=== PATIENT | female | born 1980 | race Caucasian/White ===

== ENCOUNTER → 2016-10-30 | Emergency (ER) | payer MEDICAID ==
[~2016-10-30] VITALS: Ht 154.9 cm; Wt 59.0 kg
[~2016-10-30] MED LIST: AMX500CIP PO; CEPH-38 PO; DIAZ10TA3 PO; DICL25CA4 PO; HYDR-2890 PO; LAMO100T69 PO; OXYC-272 PO; PRD20T PO; PROM12.59 PO; RT-ALBUTEROL/IPRATROPIUM 3 ML (DUONEB) VIAL INH ONE; methylPREDNISolone 125 MG (Solu-MEDROL) VIAL IM ONE; methylPREDNISolone 125 MG (Solu-MEDROL) VIAL ONE
--- NOTE | 2016-10-30 14:17 | ED Respiratory ---
General Chief Complaint: Respiratory Problems Stated Complaint: SOA,CHEST PAIN Source: patient Exam Limitations: no limitations History of Present Illness Time seen by provider: 14:13 Initial Comments The patient states that she was in the car yesterday with her and family as they were going out to eat. She noted a sensation of pressure over the upper shoulders posteriorly and then felt that she could not pull in a breath for about 30 minutes. This had never happened before. She is a smoker. She has chronic lung problems primarily with bronchitis. She sees Corrine a picker box operator in [place]. She saw him last week and he adjusted her medications. This did not seem to do for her circumstances. Timing/Duration: yesterday Prior Episodes/Possible Cause: occasional episodes Modifying Factors: Improves With Albuterol Inhaler, Improves With Other ( inhaled steroids) Associated Symptoms: chest pain/soreness, shortness of breath Allergies and Home Medications Allergies Coded Allergies: No Known Drug Allergies (Unverified , 11/12/13) Home Medications Cephalexin Monohydrate 500 Mg Capsule, 1 EACH PO QID, #28 Prescribed by: TO CASTRO on 11/14/13 1045 Diazepam 10 Mg Tablet, 10 MG PO TID PRN, (Reported) Diclofenac Potassium 25 Mg Capsule, 25 MG PO TID PRN for PAIN, #20 Prescribed by: ESME JEONG on 11/08/141950 Hydrocodone Bit/Acetaminophen 1 Each Tablet, 1 EACH PO Q4H, #50 Ref 1 Prescribed by: TO CASTRO on 11/14/13 1045 Lamotrigine 100 Mg Tablet, 100 MG PO DAILY, (Reported) Promethazine Hcl 12.5 Mg Tablet, 12.5 MG PO PRN, (Reported) Constitutional: see HPI EENTM: no symptoms reported Respiratory: see HPI, cough, dyspnea on exertion, short of breath, wheezing Cardiovascular: no symptoms reported Gastrointestinal: no symptoms reported Genitourinary: no symptoms reported Musculoskeletal: no symptoms reported Skin: no symptoms reported Psychiatric/Neurological: No Symptoms Reported Hematologic/Lymphatic: No Symptoms Reported Immunological/Allergic: no symptoms reported Past Gjxolur-Wpyykw-Mgtshr Hx Patient Social History Recent Foreign Travel: No Contact w/Someone Who Travel: No Immunizations Up To Date Tetanus Booster (TDap): Less than 5yrs Surgeries HX Surgeries: Yes Respiratory Hx Respiratory Disorders: Yes Respiratory Disorders: Asthma, COPD Neurological Hx Neurological Disorders: Yes Reproductive System Hx Reproductive Disorders: No Sexually Transmitted Disease: No HIV/AIDS: No Female Reproductive Disorders: Denies MANAGER EMERGENCY History: Tubal Ligation Genitourinary Hx Genitourinary Disorders: No Gastrointestinal Hx Gastrointestinal Disorders: Yes Gastrointestinal Disorders: Gall Bladder Disease Musculoskeletal Hx Musculoskeletal Disorders: No Endocrine Hx Endocrine Disorders: No HEENT HX ENT Disorders: No Cancer Hx Cancer: No Psychosocial Hx Psychiatric Problems: No Integumentary HX Skin/Integumentary Disorder: Yes Skin/Integumentary Disorders: Eczema Blood Transfusions Hx Blood Disorders: No Adverse Reaction to a Blood Tr: No Family Medical History Family Medial History: Cancer 19 MOTHER Family history: Allergy 19 FATHER 19 MOTHER G8 SISTER G8 SISTER G8 SISTER Family history: Asthma 19 FATHER 19 MOTHER G8 SISTER Family history: Gastrointestinal disease 19 FATHER G8 SISTER G8 SISTER Hearing loss 19 MOTHER Kidney disease G8 SISTER Psychotic disorder 19 MOTHER Seizure disorder 19 MOTHER Stroke 19 MOTHER No Family History of: Abdominal aortic aneurysm [place]'s disease Alcoholism Aphasia Cancer of colon Cataract Chest pain Congenital heart disease Congestive heart failure Cystic fibrosis Dementia Dysphagia Family history: Alzheimer's disease Family history: Arthritis Family history: Breast disease Family history: Cardiovascular disease Family history: Coronary thrombosis Family history: Diabetes mellitus Family history: Glaucoma Family history: Hypertension Family history: Osteoporosis Family history: Thyroid disorder Headache Heart disease Hereditary disease History of - anemia History of - disorder History of - respiratory disease History of drug abuse Human immunodeficiency virus (HIV) seropositivity Hypercholesterolemia Infertile Malignant neoplasm of lung Myocardial infarction Parkinson's disease Prostate cancer Tuberculosis Visual impairment Physical Exam Vital Signs Vital Sign - Last 12Hours 10/30/16 14:23 Pulse Ox 97 Capillary Refill : General Appearance: mild distress Eyes: Bilateral Eye Normal Inspection HEENT: normal ENT inspection Neck: full range of motion Respiratory: decreased breath sounds (distant), rhonchi, wheezing (wheezing and rhonchi right posterior base) Cardiovascular: normal peripheral pulses, regular rate, rhythm, no edema, no gallop, no JVD, no murmur Gastrointestinal: normal bowel sounds, non tender, soft, no organomegaly, no pulsatile mass Extremities: normal range of motion Neurologic/Psychiatric: sld educational aide II-XII nml as tested, no motor/sensory deficits, alert, normal mood/affect, oriented x 3 Skin: normal color, warm/dry, cyanosis, cool, diaphoresis, damp Lymphatic: no adenopathy, axilla node tender (R), axilla node tender (L), inguinal node tender (R), inguinal node tender (L) Progress/Results/Core Measures Results/Orders Lab Results Laboratory Tests Test 10/30/16 14:19 Range/Units White Blood Count 11.8 H 4.3-11.0 10^3/uL Red Blood Count 5.23 4.35-5.85 10^6/uL Hemoglobin 15.4 11.5-16.0 G/DL Hematocrit 48 35-52 % Mean Corpuscular Volume 91 80-99 FL Mean Corpuscular Hemoglobin 29 25-34 PG Mean Corpuscular Hemoglobin Concent 32 32-36 G/DL Red Cell Distribution Width 13.0 10.0-14.5 % Platelet Count 296 130-400 10^3/uL Mean Platelet Volume 8.9 7.4-10.4 FL Neutrophils (%) (Auto) 68 42-75 % Lymphocytes (%) (Auto) 22 12-44 % Monocytes (%) (Auto) 6 0-12 % Eosinophils (%) (Auto) 4 0-10 % Basophils (%) (Auto) 1 0-10 % Neutrophils # (Auto) 8.0 H 1.8-7.8 X 10^3 Lymphocytes # (Auto) 2.6 1.0-4.0 X 10^3 Monocytes # (Auto) 0.7 0.0-1.0 X 10^3 Eosinophils # (Auto) 0.5 H 0.0-0.3 10^3/uL Basophils # (Auto) 0.1 0.0-0.1 10^3/uL Sodium Level 139 135-145 MMOL/L Potassium Level 3.9 3.6-5.0 MMOL/L Chloride Level 107 98-107 MMOL/L Carbon Dioxide Level 23 21-32 MMOL/L Anion Gap 9 5-14 MMOL/L Blood Urea Nitrogen 11 7-18 MG/DL Creatinine 0.71 0.60-1.30 MG/DL Estimat Glomerular Filtration Rate > 60 BUN/Creatinine Ratio 15 Glucose Level 103 70-105 MG/DL Calcium Level 9.2 8.5-10.1 MG/DL Total Bilirubin 0.3 0.1-1.0 MG/DL Aspartate Amino Transf (AST/SGOT) 11 5-34 U/L Alanine Aminotransferase (ALT/SGPT) 14 0-55 U/L Alkaline Phosphatase 88 40-136 U/L Troponin I < 0.30 <0.30 NG/ML Total Protein 7.2 6.4-8.2 G/DL Albumin 4.1 3.2-4.5 G/DL My Orders Orders - THIAGO BRASHER MD Ekg Tracing (10/30/16 14:00) Cbc With Automated Diff (10/30/16 14:00) Comprehensive Metabolic Panel (10/30/16 14:00) Troponin I (10/30/16 14:00) Albuterol/Ipra Inhalation Soln (Duoneb I (10/30/16 14:15) Svn Sm Volume Nebulizer Rt-Rfs (10/30/16 14:12) Rt Request For Service (10/30/16 14:12) Albuterol/Ipra Inhalation Soln (Duoneb I (10/30/16 14:15) Svn Sm Volume Nebulizer Rt-Rfs (10/30/16 14:12) Chest 1 View, Ap/Pa Only (10/30/16 14:34) Medications Given in ED Current Medications Medications Dose Ordered Sig/Arlyn Route Start Time Stop Time Status Last Admin Dose Admin Albuterol/ Ipratropium 3 ml ONCE ONCE INH 10/30/16 14:15 10/30/16 14:16 DC 10/30/16 14:23 3 ML Vital Signs/I&O Vital Sign - Last 12Hours 10/30/16 14:23 Pulse Ox 97 Departure Communication Progress Notes Laboratory and chest x-ray were negative. The patient is somewhat improved after a DuoNeb treatment. She reports that she had been tapered off of steroids recently and has had increase in pulmonary symptoms since then. She has been taking a inhaled steroid with her nebulizer. This is also caused sores and white S CUM in her mouth and tongue. Impression Impression: Primary Impression: acute and chronic bronchitis Additional Impression: bronchospasm Disposition: 01 HOME, SELF-CARE Condition: Stable/Unchanged Departure-Patient Inst. Decision time for Depature: 16:28 Referrals: MAIK ZAVALETA DO (PCP) Primary Care Physician SUMAYA DUNCAN (Family) Primary Care Physician Patient Instructions: Chronic Bronchitis (DC) Add. Discharge Instructions: All discharge instructions reviewed with patient and/or family. Voiced understanding. Continue bronchodilators. In a.m. begin prednisone as directed. See your provider for further instructions Scripts Prednisone (Prednisone) 20 Mg Tab 20 MG PO DAILY, #11 TAB Take 3 tabs(60mg)daily, decrease by 1/2 tab(10mg)daily. Prov: THIAGO BRASHER MD 10/30/16 THIAGO BRASHER MD Oct 30, 2016 14:17
[2016-10-30 14:28] LABS: RED BLOOD COUNT 5.23 10^6/uL (4.35-5.85); WHITE BLOOD COUNT 11.8 10^3/uL (4.3-11.0)
[2016-10-30 14:29] LABS: BASOPHILS # (AUTO) 0.1 10^3/uL (0.0-0.1); BASOPHILS % (AUTO) 1 % (0-10); EOSINOPHILS # (AUTO) 0.5 10^3/uL (0.0-0.3); EOSINOPHILS % (AUTO) 4 % (0-10); LYMPHOCYTES # (AUTO) 2.6 X 10^3 (1.0-4.0); LYMPHOCYTES % (AUTO) 22 % (12-44); MEAN CORPUSCULAR HEMOGLOBIN 29 PG (25-34); MEAN CORPUSCULAR HGB CONC 32 G/DL (32-36); MEAN CORPUSCULAR VOLUME 91 FL (80-99); MEAN PLATELET VOLUME 8.9 FL (7.4-10.4); MONOCYTES # (AUTO) 0.7 X 10^3 (0.0-1.0); MONOCYTES % (AUTO) 6 % (0-12); NEUTROPHILS % (AUTO) 68 % (42-75); PLATELET COUNT 296 10^3/uL (130-400)
[2016-10-30 14:46] LABS: ALANINE AMINOTRANSFERASE 14 U/L (0-55); ALBUMIN 4.1 G/DL (3.2-4.5); ANION GAP 9 MMOL/L (5-14); ASPARTATE AMINO TRANSFERASE 11 U/L (5-34); BILIRUBIN,TOTAL 0.3 MG/DL (0.1-1.0); BLOOD UREA NITROGEN 11 MG/DL (7-18); BUN/CREATININE RATIO 15; CALCIUM 9.2 MG/DL (8.5-10.1); CARBON DIOXIDE 23 MMOL/L (21-32); CHLORIDE 107 MMOL/L (98-107); CREATININE SERUM 0.71 MG/DL (0.60-1.30); GFR ESTIMATED > 60; GLUCOSE 103 MG/DL (70-105); POTASSIUM 3.9 MMOL/L (3.6-5.0); SODIUM 139 MMOL/L (135-145); TOTAL PROTEIN 7.2 G/DL (6.4-8.2)
[2016-10-30 14:54] LABS: TROPONIN I < 0.30 NG/ML (<0.30)
--- NOTE | 2016-10-30 15:14 | Diagnostic Imaging Report ---
EXAMINATION: Portable upright radiograph of the chest. INDICATION: Unusual discomfort feeling between the shoulder blades. FINDINGS: The lungs are clear. The heart size is normal. There is no effusion or pneumothorax. The mediastinum and connie appear unremarkable. IMPRESSION: Unremarkable study. Dictated by: Dictated on workstation # [id number]
[2016-10-30 16:57] VITALS: BP 142/90
== END | disposition home or self-care (01) ==
LOC: EDUNIT# 13:43 → ER 13:45
DX: J20.9 Acute bronchitis, unspecified (principal); J42 Unspecified chronic bronchitis
CPT/HCPCS: 36415; 71010; 80053; 84484; 85025; 93005; 94640

== ENCOUNTER 2023-04-17 08:46 | Outpatient (CLI) | payer MEDICAID ==
[~2023-04-17 08:46] MED LIST changes: -RT-ALBUTEROL SULF 2.5 MG/3 ML PRE-MIX VIAL INH ONE
== END 2023-04-17 09:40 ==
LOC: SLEEP 08:46
PROVIDERS: ATTEND Nurse Practitioner Family
DX: G47.10 Hypersomnia, unspecified (principal); J45.40 Moderate persistent asthma, uncomplicated; K21.9 Gastro-esophageal reflux disease without esophagitis; Z68.42 Body mass index [BMI] 45.0-49.9, adult
CPT/HCPCS: G0399

== ENCOUNTER → 2023-04-17 | Outpatient (CLI) | payer MEDICAID ==
[~2023-04-17] MED LIST changes: +RT-ALBUTEROL SULF 2.5 MG/3 ML PRE-MIX VIAL INH ONE; -RT-ALBUTEROL/IPRATROPIUM 3 ML (DUONEB) VIAL INH ONE; -methylPREDNISolone 125 MG (Solu-MEDROL) VIAL IM ONE; -methylPREDNISolone 125 MG (Solu-MEDROL) VIAL ONE
== END ==
LOC: RT 09:15
PROVIDERS: ATTEND Nurse Practitioner Family
DX: J45.40 Moderate persistent asthma, uncomplicated (principal); G47.9 Sleep disorder, unspecified; G47.10 Hypersomnia, unspecified; K21.9 Gastro-esophageal reflux disease without esophagitis
CPT/HCPCS: 94060; 94726; 94729